=== PATIENT | female | born 1990 | race American Indian/Alaskan Native ===

== ENCOUNTER 2017-04-08 00:52 | Emergency (ER) | payer MEDICAID, OTHER ==
--- NOTE | 2017-04-08 01:49 | OBHP ---
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; abdnormal 1 hour gtt.did 3 hour gtt 04/05/2017.wa iting for results.plans to deliver via csection PMH denies PSH denies OBGYN HX Social hx denies tobacco,alcohol or illicit drug us Exam see exam section finger stick glucose 79mg/dl A/P at 35 wga with c/o abdominal pain.patient not in labor.suspect gas pains -patient advised to take tgas x for gas pain and tume prn heart burn -follow up in clinic today -patient given labor precautions Pelvic Type - PN: Adequate Extremities - PN: Normal Abdomen - PN: Normal Back - PN: Normal Lungs - PN: Normal Heart - PN: Normal Neurologic - PN: Normal General - PN: Normal Contraction Comments Provider: none Gestation - Est Wks by US: 35.0 EGA AdmitDate IP: 35.0 Vital Signs Provider: Reviewed; Within Normal Limits IP Chief Complaint: Other FHR Category Provider Fetus A: Category I Dilatation, Provider: 0 Effacement, Provider: thick Station, Provider: high Genitourinary Exam: Normal DTRs - PN: Normal
== END 2017-04-08 01:34 | disposition home or self-care (01) ==
LOC: C.EROB 00:52
DX: O26.893 Other specified pregnancy related conditions, third trimester (principal); R10.9 Unspecified abdominal pain; Z3A.35 35 weeks gestation of pregnancy

== ENCOUNTER 2017-06-27 21:48 | Emergency (ER) | payer OTHER ==
[2017-06-27 21:52] VITALS: BP 95/67; PULSE 94; RESP 20; TEMP 98.1; O2SAT 99
[2017-06-27 22:18] LABS: RBC URINE 20 /hpf (0-3); URINE BACTERIA MOD (<OCC); URINE BILIRUBIN NEGATIVE (NEGATIVE); URINE BLOOD 1+ (NEGATIVE); URINE COLOR Yellow (YELLOW); URINE GLUCOSE (UA) NORMAL (Normal); URINE KETONE NEGATIVE (NEGATIVE); URINE LEUKOCYTE ESTERASE 2+ Leu/uL (Negative); URINE PROTEIN 2+ mg/dL (NEGATIVE); URINE UROBILINOGEN NORMAL mg/dL (0.2-1.0); WBC URINE 183 /hpf (0-5)
--- NOTE | 2017-06-27 22:31 | C.PDOC ---
History Of Present Illness 26 yo female come in for evaluation of pain on urination gradually developed for past 2 days associated with urinary hesitance and frequency, mild lower back pain. Otherwise, pt denies high fever, chills, headache, dizziness, abd. pain, N/V, hematuria, vaginal irritation or discharges. Ambulate to ED for evaluation, not in any apparent distress. Time Seen by Provider: 06/27/17 22:15 Chief Complaint (Nursing): Female Genitourinary History Per: Patient Onset/Duration Of Symptoms: Gradual Past Medical History Reviewed: Historical Data, Nursing Documentation, Vital Signs Vital Signs: Last Vital Signs Temp 98.1 F 06/27/17 21:50 Pulse 94 H 06/27/17 21:50 Resp 20 06/27/17 21:50 BP 95/67 L 06/27/17 21:50 Pulse Ox 99 06/27/17 21:50 - Medical History PMH: Asthma Surgical History: Other Surgeries: May 16, 2017 Family History: States: No Known Family Hx - Social History Hx Alcohol Use: No Hx Substance Use: No - Immunization History Hx Tetanus Toxoid Vaccination: No Hx Influenza Vaccination: No Hx Pneumococcal Vaccination: No Review Of Systems Except As Marked, All Systems Reviewed And Found Negative. Constitutional: Negative for: Fever, Chills ENT: Negative for: Throat Pain, Throat Swelling Cardiovascular: Negative for: Chest Pain Respiratory: Negative for: Cough, Shortness of Breath, Wheezing Gastrointestinal: Negative for: Nausea, Vomiting, Abdominal Pain, Diarrhea Genitourinary: Positive for: Dysuria, Frequency. Negative for: Incontinence, Hematuria, Vaginal Discharge, Vaginal Bleeding Musculoskeletal: Negative for: Back Pain Skin: Negative for: Rash Neurological: Negative for: Weakness, Numbness, Altered Mental Status Physical Exam - Physical Exam Appears: Well, Non-toxic, No Acute Distress Skin: Normal Color, Warm, No Rash Head: Normacephalic Eye(s): bilateral: PERRL Nose: No Flaring, No Discharge Oral Mucosa: Moist, No Drooling Throat: No Erythema Neck: Supple Cardiovascular: Rhythm Regular Respiratory: No Decreased Breath Sounds, No Accessory Muscle Use, No Stridor, No Wheezing Gastrointestinal/Abdominal: Soft, Tenderness (mild spurapubic), No Distention, No Guarding, Other (well healing suprapubic scar covered by steri-strips. no discharges, no edema or erythema.) Back: No CVA Tenderness Extremity: No Pedal Edema Neurological/Psych: Oriented x3, Normal Speech ED Course And Treatment O2 Sat by Pulse Oximetry: 99 Pulse Ox Interpretation: Normal Progress Note: On re-evaluation, pt is awake, not in any apparent distress. Afebrile hemodynamicaly stable. Non-toxic. Tolerate Po well in ED. PulseOx 99% RA. ENT: no acute findings. Neck: Supple, (-) meningeal sign. Lungs: CTA B/L, BS equal B/L. ABd: benign. Back: (-) CVA tenderness. UA results review and c/ w UTI. preg (-). parent advised on course of ds. ref. to f/u with PMD in 2-3 days for re-evaluation. Return to ED if any worsening for new changes. Disposition Counseled Patient/Family Regarding: Studies Performed, Diagnosis, Need For Followup, Rx Given - Disposition Referrals: Brendan Hemphill MD [Staff Provider] - Disposition Time: 22:28 Condition: STABLE Additional Instructions: ENCOURAGE FLUIDS CRANBERRY SUPPLEMENT OR JUICE TAKE MEDICATION PRESCRIBED RETURN TO ED IN 2 DAYS IF NO IMPROVEMENT IN SYMPTOMS. FOLLOW UP WITH PMD IN 3-4 DAYS FOR RE-EVALUATION. Prescriptions: Nitrofurantoin Macrocrystals [Macrobid] 1 cap PO BID #14 cap Nitrofurantoin Monohyd/M-Cryst [Nitrofurantoin Monohydrate/Macrocrystals] 100 mg PO BID #14 cap Instructions: Urinary Tract Infection in Women (ED) - Clinical Impression Clinical Impression: UTI (urinary tract infection)
== END 2017-06-27 23:08 | disposition home or self-care (01) ==
LOC: C.ER 21:48
DX: N39.0 Urinary tract infection, site not specified (principal)